=== PATIENT | female | born 1950 | race Caucasian/White ===

== ENCOUNTER 2017-05-09 14:51 | Emergency (ER) | payer MEDICARE ==
[~2017-05-09] VITALS: Ht 154.9 cm; Wt 90.7 kg
[~2017-05-09 14:51] MED LIST: ACT15 PO; AMLODIPINE BESY10 M1 PO; ASPIRIN ADULT L81 M4 PO; ATENOLOL25 MG PO; CALCIUM PO; GLIPIZIDE2.5 M1; GLU10XL PO; HUMULIN R100 U/1 M1 SC; HYDROCHLOROTH12.5 M2; IBUPROFEN400 MG; INVOKANA100 MG PO; LASIX40 MG PO; LEVAQUIN750 MG PO; LISINOPRIL20 MG PO; LYRICA100 M1 PO; METFORMIN HCL500 MG PO; NORCO1 TA2 PO; TRAZODONE50 M1 PO; VIT PO; ZESTRIL5 MG; ZOCOR20 MG PO
[2017-05-09 17:59] VITALS: BP 113/70
== END 2017-05-09 18:00 | disposition home or self-care (01) ==
LOC: ED 14:51
DX: M54.42 Lumbago with sciatica, left side (principal); M51.36 Other intervertebral disc degeneration, lumbar region; E11.40 Type 2 diabetes mellitus with diabetic neuropathy, unspecified; E78.00 Pure hypercholesterolemia, unspecified; I10 Essential (primary) hypertension; Z88.2 Allergy status to sulfonamides; Z79.84 Long term (current) use of oral hypoglycemic drugs; Z79.1 Long term (current) use of non-steroidal anti-inflammatories (NSAID); Z79.899 Other long term (current) drug therapy
CPT/HCPCS: J1170; J1885; Q0162